=== PATIENT | female | born 2000 | race Two or more races ===

== ENCOUNTER 2023-10-29 19:03 | Emergency (ER) | payer MEDICAID ==
[~2023-10-29] VITALS: Ht 172.7 cm; Wt 100.0 kg
[2023-10-29 20:00] VITALS: BP 129/87; PULSE 90; RESP 20; TEMP 98.6; O2SAT 95
[2023-10-29] MEDS ORDERED: IBUP-1455 PO (20:36)
[2023-10-29] MEDS: IBUPROFEN 800 MG TAB PO ONE (20:45)
== END 2023-10-29 20:48 | disposition home or self-care (01) ==
LOC: ER 19:03
DX: S50.11XA Contusion of right forearm, initial encounter (principal); W01.0XXA Fall on same level from slipping, tripping and stumbling without subsequent striking against object, initial encounter; Y93.01 Activity, walking, marching and hiking; Y92.89 Other specified places as the place of occurrence of the external cause; Y99.8 Other external cause status
CPT/HCPCS: 73090

== ENCOUNTER 2024-05-08 22:14 | Emergency (ER) | payer MEDICAID ==
[~2024-05-08] VITALS: Ht 165.1 cm; Wt 95.4 kg
[~2024-05-08 22:14] MED LIST: IBUP-1455 PO
[2024-05-09 01:02] LABS: COVID19 ANTIGEN SOFIA FIA NEGATIVE (NEGATIVE); Rapid Influenza A Negative (Negative); Rapid Influenza B Negative (Negative)
--- NOTE | 2024-05-09 01:31 | ED.PDOC ---
Eye-HPI HPI Comments THIS IS A 23-YEAR-OLD FEMALE PRESENTS TO THE ED CHIEF COMPLAINT FLU-LIKE S YMPTOMS X2 DAYS. PATIENT COMPLAINING OF SORE THROAT, NASAL DRAINAGE, COUGH, NAUSEA VOMITING DIARRHEA, AND TACTILE FEVERS. HAS BEEN TAKING [id number] DAYQUIL WITH LITTLE RELIEF. SHE DENIES CHEST PAIN, SHORTNESS OF BREATH, DIFFICULTY BREATHING, OR ABDOMINAL PAIN OR COME IN ANY URINARY SYMPTOMS. Chief Complaint: Flu like Time Seen by MD: 22:41 Primary Care Provider: SONDRA Reviewed Notes: Nurses Notes, Medications, Allergies Allergies: Coded Allergies: Penicillins (Verified Allergy, Unknown, 05/08/24) Home Meds Active Scripts Promethazine-Dm (Promethazine Dm 6.25-15 mg/5Ml) 1 Aleksandra Aleksandra, 5 ML PO QID PRN for 3 Days, #60 ML Prov:SAMMI SLAUGHTERP 05/09/24 Amoxicillin & Pot Clavulanate (AUGMENTIN TABLET) 875 Mg Tb, 875 MG PO BID for 10 Days, #20 TAB Prov:SAMMI SLAUGHTER 05/09/24 Ibuprofen Micronized (Ibuprofen) 800 Mg Tab, 800 MG PO TIDPRN PRN, #15 TAB Prov:JOSLYN AHMADI PAC 10/29/23 Information Source: Patient Mode of Arrival: Ambulatory Past Medical History PAST MEDICAL HISTORY: Denies Surgical History: Denies all surgeries ASSEMBLER SEMICONDUCTOR History: No Pertinent ASSEMBLER SEMICONDUCTOR History Family History Family History: Reviewed,noncontributory to illness, Unknown Social History Smoker: Non-Smoker Alcohol: Denies ETOH Use Drugs: Denies Drug Use Lives In: Home Constitutional: reports: fever; denies: chills, diaphoresis, fatigue, malaise, sweats, weakness, others EENTM: reports: throat pain, throat swelling; denies: blurred vision, double vision, ear bleeding, ear discharge, ear drainage, ear pain, ear ringing, eye pain, eye redness, hearing loss, mouth pain, mouth swelling, nasal discharge, nose bleeding, nose congestion, nose pain, photophobia, tearing, voice changes, others Respiratory: reports: cough; denies: hemoptysis, orthopnea, SOB at rest, shortness of breath, SOB with excertion, stridor, wheezing, others Cardiovascular: denies: chest pain, dizzy spells, diaphoresis, Dyspnea on exertion, edema, irregular heart beat, left arm pain, lightheadedness, palpitations, PND, syncope, others Gastrointestinal: denies: abdomen distended, abdominal pain, blood streaked bowels, constipated, diarrhea, dysphagia, difficulty swallowing, hematemesis, melena, nausea, poor appetite, poor fluid intake, rectal bleeding, rectal pain, vomiting, others Genitourinary: denies: abnormal vagina bleeding, burning, dyspareunia, dysuria, flank pain, frequency, hematuria, incontinence, pain, , vagina discharge, urgency, others Neurological: denies: dizziness, fainting, headache, left sided numbness, left sided weakness, numbness, paresthesia, pre-existing deficit, right sided numbness, right sided weakness, seizure, speech problems, tingling, tremors, weakness, others Musculoskeletal: denies: back pain, gout, joint pain, joint swelling, muscle pain, muscle stiffness, neck pain, others Integumetry: denies: bruises, change in color, change in hair/nails, dryness, laceration, lesions, lumps, rash, wounds, others Allergic/Immunocompromised: denies: Difficulty Healing, Frequent Infections, Hives, Itching, others Hematologic/Lymphatic: denies: anemia, blood clots, easy bleeding, easy bruising, swollen glands, others Endocrine: denies: excessive hunger, excessive sweating, excessive thirst, excessive urination, flushing, intolerance to cold, intolerance to heat, unexplained weight gain, unexplained weight loss, others Psychiatric: denies: anxiety, bipolar disorder, depression, hopeless, panic disorder, schizophrenia, sleepless, suicidal, others Physical Exam General Appearance: No Apparent Distress, Normal HEENT: Pharyngeal Erythema, TMs Normal, Tonsillar Exudate Neck: Full Range of Motion, Non-Tender Respiratory: Lungs Clear, No Respiratory Distress, Normal Breath Sounds Cardiovascular: No Edema, No JVD, No Murmur, No Gallop, Normal Peripheral Pulses, Regular Rate/Rhythm Breast Exam: Deferred Gastrointestinal: No Organomegaly, Non Tender, No Pulsatile Mass, Normal Bowel Sounds, Soft Genitalia: Deferred Pelvic: Deferred Rectal: Deferred Extremities: Normal capillary refill, Normal inspection, Normal range of motion, Non-tender, No pedal edema Musculoskeletal : Apperance: Normal Neurologic: Alert, denture laboratory technician II-XII nml as Tested, No Motor Deficits, Normal Affect, Normal Mood, No Sensory Deficits Cerebellar Function: Normal Reflexes: Normal Skin: Dry, Normal Color, Warm Lymphatic: No Adenopathy Was a procedure done? Was a procedure done?: No EENT DIFF Eye: N/A Sore Throat: Peritonsillar Abscess, Peritonsillar Cellulitis, Streptococcal, Viral Pharyngitis X-Ray, Labs, Meds, VS Vital Signs Date Time Temp Pulse Resp B/P (MAP) Pulse Ox O2 Delivery O2 Flow Rate FiO2 05/09/24 01:48 98.4 109 20 127/83 (98) 98 98.4 05/08/24 22:24 98.9 111 20 127/60 (82) 99 98.9 05/08/24 22:24 Room Air 05/08/24 22:24 98.9 111 20 129/60 (83) 99 Lab Test 05/09/24 00:00 Range/Units Influenza Type A Antigen Negative Negative Influenza Type B Antigen Negative Negative SARS-CoV-2 Antigen (Rapid) Negative NEGATIVE Current Medications Medications (Trade) Dose Ordered Sig/Robbin Route Start Time Stop Time Status Last Admin Dexamethasone Sodium Phosphate (Decadron Injection) 10 mg ONCE ONCE IM 05/09/24 01:45 05/09/24 01:46 DC 05/09/24 01:48 X-Ray, Labs, Meds, VS Comment INFLUENZA AND COVID SWABS NEGATIVE LIKELY ACUTE BACTERIAL TONSILLITIS. PATIENT GIVEN DECADRON 10 MG IM FOR THE PAIN AND SWELLING. OUTPATIENT TRIAL OF AUGMENTIN TWICE DAILY TIMES 10 DAYS AND PROMETHAZINE DM FOR THE COUGH AND NAUSEA. Time of 1ST Reevaluation: 01:33 Reevaluation 1ST: Improved Patient Education/Counseling: Diagnosis, Treatment, Prognosis, Need For Follow Up Family Education/Counseling: No Family Present Departure 1 Departure Time of Disposition: 01:30 Impression: Primary Impression: Acute tonsillitis Qualified Codes: J03.90 - Acute tonsillitis, unspecified Disposition: HOME / SELF CARE / HOMELESS Condition: Stable e-Prescriptions Promethazine-Dm (Promethazine Dm 6.25-15 mg/5Ml) 1 Aleksandra Aleksandra 5 ML PO QID PRN for 3 Days, #60 ML Prov: SAMMI SLAUGHTER 05/09/24 Amoxicillin & Pot Clavulanate (AUGMENTIN TABLET) 875 Mg Tb 875 MG PO BID for 10 Days, #20 TAB Prov: SAMMI SLAUGHTER 05/09/24 Discharged With: Self Critical Care Note Critical Care Time?: No Stability Stability form required: SAMMI [place] May 09, 2024 01:30
[2024-05-09] MEDS ORDERED: PROM1SOL4 PO (01:33)
[2024-05-09] MEDS ORDERED: AUG875T PO (01:33)
[2024-05-09 01:48] VITALS: BP 127/83; PULSE 109; RESP 20; TEMP 98.4; O2SAT 98
[2024-05-09] MEDS: DexAMETHasone SOD PHOS 10MG/1ML VIAL INJ IM ONE (01:48)
== END 2024-05-09 01:52 | disposition home or self-care (01) ==
LOC: ER 22:14
DX: J03.90 Acute tonsillitis, unspecified (principal); Z88.0 Allergy status to penicillin; Z20.822 Contact with and (suspected) exposure to COVID-19
CPT/HCPCS: 36415; 87426; 87804; 96372; 99283; J1100

== ENCOUNTER 2025-01-13 16:26 | Emergency (ER) | payer MEDICAID ==
[~2025-01-13] VITALS: Ht 172.7 cm; Wt 100.1 kg
--- NOTE | 2025-01-13 17:07 | ED.PDOC ---
Psychiatric HPI Comments 24 year old female presents to the ED with a chief complaint of depression onset 2 months. Patient states she has been experiencing depression for the past 2 months, recently broke up with her girlfriend. Patient states she is also experiencing anxiety, noticed she is losing hair and her hair is becoming very thin. She has been hurting herself, cutting RT arm. Denies suicidal ideation, homicidal ideation, hallucinations. No other symptoms or modifying factors present at this time. Chief Complaint: Mental Health Time Seen by MD: 17:00 Primary Care Provider: DENIES Reviewed Notes: Medications, Allergies Mode of Arrival: Ambulatory Severity of Mental Status: Moderate Severity of Symptoms: Moderate Timing: Months Duration: Since onset Prehospital treatment: None Presents with: Depression, Anxiety Ingestion: None Circumstance: None Current substance abuse: None Stressors: Relationships History of: None Quality: None Associated signs and symptoms: Depression, Anxiety Past Medical History PAST MEDICAL HISTORY: Denies Surgical History: Denies all surgeries COMMUTATOR V RING ASSEMBLER History: No Pertinent COMMUTATOR V RING ASSEMBLER History Family History Family History: Reviewed,noncontributory to illness, Unknown Social History Smoker: Non-Smoker Alcohol: Denies ETOH Use Drugs: Denies Drug Use Lives In: Home Constitutional: denies: chills, diaphoresis, fatigue, fever, malaise, sweats, weakness, others EENTM: denies: blurred vision, double vision, ear bleeding, ear discharge, ear drainage, ear pain, ear ringing, eye pain, eye redness, hearing loss, mouth pain, mouth swelling, nasal discharge, nose bleeding, nose congestion, nose pain, photophobia, tearing, throat pain, throat swelling, voice changes, others Respiratory: denies: cough, hemoptysis, orthopnea, SOB at rest, shortness of breath, SOB with excertion, stridor, wheezing, others Cardiovascular: denies: chest pain, dizzy spells, diaphoresis, Dyspnea on exertion, edema, irregular heart beat, left arm pain, lightheadedness, palpitations, PND, syncope, others Gastrointestinal: denies: abdomen distended, abdominal pain, blood streaked bowels, constipated, diarrhea, dysphagia, difficulty swallowing, hematemesis, melena, nausea, poor appetite, poor fluid intake, rectal bleeding, rectal pain, vomiting, others Genitourinary: denies: abnormal vagina bleeding, burning, dyspareunia, dysuria, flank pain, frequency, hematuria, incontinence, pain, , vagina disc harge, urgency, others Neurological: denies: dizziness, fainting, headache, left sided numbness, left sided weakness, numbness, paresthesia, pre-existing deficit, right sided numbness, right sided weakness, seizure, speech problems, tingling, tremors, weakness, others Musculoskeletal: denies: back pain, gout, joint pain, joint swelling, muscle pain, muscle stiffness, neck pain, others Integumetry: denies: bruises, change in color, change in hair/nails, dryness, laceration, lesions, lumps, rash, wounds, others Allergic/Immunocompromised: denies: Difficulty Healing, Frequent Infections, Hives, Itching, others Hematologic/Lymphatic: denies: anemia, blood clots, easy bleeding, easy bruising, swollen glands, others Endocrine: denies: excessive hunger, excessive sweating, excessive thirst, excessive urination, flushing, intolerance to cold, intolerance to heat, unexplained weight gain, unexplained weight loss, others Psychiatric: reports: anxiety, depression; denies: bipolar disorder, hopeless, panic disorder, schizophrenia, sleepless, suicidal, others All Other Systems: Reviewed and Negative Physical Exam General Appearance: Moderate Distress, Normal HEENT: Normal ENT Inspection, Pharynx Normal, TMs Normal Neck: Full Range of Motion, Non-Tender, Normal, Normal Inspection Respiratory: Chest Non-Tender, Lungs Clear, No Accessory Muscle Use, No Respiratory Distress, Normal Breath Sounds Cardiovascular: No Edema, No JVD, No Murmur, No Gallop, Normal Peripheral Pulses, Regular Rate/Rhythm Breast Exam: Deferred Gastrointestinal: No Organomegaly, Non Tender, No Pulsatile Mass, Normal Bowel Sounds, Soft Genitalia: Deferred Pelvic: Deferred Rectal: Deferred Extremities: No calf tenderness, Normal capillary refill, Normal inspection, Normal range of motion, Non-tender, No pedal edema Musculoskeletal : Apperance: Normal Neurologic: Alert, vehicle leasing and rental manager II-XII nml as Tested, No Motor Deficits, Normal Affect, Normal Mood, No Sensory Deficits Cerebellar Function: Normal Reflexes: Normal Skin: Dry, Normal Color, Warm Peripheral Pulses: 3+ Radial (R), 3+ Radial (L) Lymphatic: No Adenopathy Was a procedure done? Was a procedure done?: No Psych Differential Dx Psych. Differential Dx: Suicidal X-Ray, Labs, Meds, VS Vital Signs Date Time Temp Pulse Resp B/P (MAP) Pulse Ox O2 Delivery O2 Flow Rate FiO2 01/13/25 16:31 98.0 125 16 137/98 95 98.0 Patient alert. Vitals stable. Has a history of psychiatric illness. Moving all extremities. No sign of distress. Medically cleared. Psychiatric evaluation. Time of 1ST Reevaluation: 17:30 Reevaluation 1ST: Unchanged Patient Education/Counseling: Diagnosis, Treatment, Prognosis Family Education/Counseling: No Family Present Departure 1 Departure Time of Disposition: 17:18 Impression: Primary Impression: Schizoaffective disorder Qualified Codes: F25.1 - Schizoaffective disorder, depressive type Disposition: 30 STILL A PATIENT Condition: Good Critical Care Note Critical Care Time?: No Stability Stability form required: No Heart Score Heart Score: Heart Score Response (Comments) Value History N/A 0 EKG N/A 0 Age N/A 0 Risk Factors N/A 0 Troponin N/A 0 Total 0 I personally scribed for WILBERTO BERG MD ([email or web address]) on 01/13/25 at 17:07. Electronically submitted by Alejandra Dietrich ([email or web address]). WILBERTO BERG MD Jan 13, 2025 17:07
[2025-01-13] MEDS: BACITRACIN TOP OINT 1 UD PKG TOP ONE (20:00)
[2025-01-13 20:35] VITALS: BP 122/76; PULSE 80; RESP 18; TEMP 97.9; O2SAT 98
[2025-01-13] MEDS: TETANUS-DIPTH-ACEL PERTUSSIS 0.5ML SYR Tdap IM ONE (22:53)
[2025-01-14 00:03] LABS: Urine Protein, UAD Negative (Negative)
== END 2025-01-14 00:38 | disposition left against medical advice (07) ==
LOC: ER 16:30
DX: F25.1 Schizoaffective disorder, depressive type (principal); F41.9 Anxiety disorder, unspecified; F32.A Depression, unspecified
CPT/HCPCS: 81001; 90471; 90715